=== PATIENT | female | born 2000 ===

== ENCOUNTER 2022-06-07 03:55 | Emergency (ER) | payer SELFPAY ==
[2022-06-07 05:14] VITALS: BP 102/57
== END 2022-06-07 16:58 | disposition left against medical advice (07) ==
LOC: ED 03:55
DX: T80.62XA Other serum reaction due to vaccination, initial encounter (principal); T50.A95A Adverse effect of other bacterial vaccines, initial encounter; L29.9 Pruritus, unspecified; Z53.21 Procedure and treatment not carried out due to patient leaving prior to being seen by health care provider; Y92.89 Other specified places as the place of occurrence of the external cause